=== PATIENT | male | born 1965 | race Caucasian/White ===

== ENCOUNTER → 2023-01-15 | Outpatient (CLI) | payer BC ==
--- NOTE | 2023-01-29 14:16 | P.SLEEP ---
History of Present Illness DATE: 01/15/2023 CONSULTATION/NEW PATIENT EVALUATION HISTORY OF PRESENT ILLNESS/SLEEP-WAKE EVALUATION: 57-year-old gentleman had been evaluated in the sleep center for obstructive sleep apnea hypopnea syndrome. Patient has history of obstructive sleep apnea for about 10 years. He is on treatment with CPAP. CPAP unit is old. I checked information from CPAP unit. Usage is 27 out of 30 nights for more than 4 hours, average 4.1 hours per night ,apnea-hypopnea index 2.9. Results of previous sleep studies possibly an available. SLEEP SCHEDULE: Usually sleep schedule from 9 PM to 3:30 AM on weekdays. On weekend sleep time is various, wake up time still the same 3:30 AM. FALLING ASLEEP: No problems with falling asleep. DURING SLEEP: Occasionally patient has dry mouth, usually does not wake up from sleep. Positive history of loud snoring. No history of hypnogogical hallucinations, sleep paralysis, or cataplexy. DURING THE DAY/WAKE STATE: No significant excessive daytime sleepiness. [place] sleepiness scale is 0. Patient doesn't take naps. PAST MEDICAL HISTORY: Hypertension. Low testosterone level. PAST SURGICAL HISTORY: Surgery for umbilical hernia. MEDICATIONS: Testosterone injections. FAMILY HISTORY: Cancer. REVIEW OF SYSTEMS: Snoring. No fevers. No double vision. No recent chest pain. No shortness of breath. No abdominal pain. No bleeding episodes. No blood in urine. No seizure episodes. PHYSICAL EXAMINATION: GENERAL: A pleasant patient without any distress. VITAL SIGNS: BP 182/97 , HR 91 , RR 16 , weight 267.4 pounds, height 5 foot 7.5 inches, body mass index 41.2 . HEENT: PERRLA, EOMI. Evaluation of oropharynx showed tongue protrudes midline, low position of soft palate Mallampati 4. NECK: Supple. No JVD. Thyroid is not palpable. 20-3/4 inches in circumference. LUNGS: Clear to percussion and to auscultation. Good air exchange. No wheezing or rhonchi. HEART: S1, S2 regular. No murmurs, gallops or rubs. ABDOMEN: Soft and nontender. Bowel sounds are present. No organomegaly appreciated. Obese EXTREMITIES: No clubbing or cyanosis. COLD WORK OPERATOR: Awake, alert, and oriented x3. Cranial nerves 2 to 7 intact. There is no fasciculation or atrophy noted. No focal deficits observed. ASSESSMENT: 1. Obstructive sleep apnea hypopnea syndrome for about 10 years. Patient continued to use his CPAP equipment with good compliance. Positive history of snoring. Extremely low position of soft palate Mallampati 4, wide neck 20 and three-quarter inches. Obstructive sleep apnea-hypopnea syndrome. 2. Obesity body mass index 41.2. 3. History of low testosterone level. 4. Significant hypertension in the office. PLAN: 1. Home sleep apnea testfor evaluation of patient's breathing during sleep at the present time. We don't have results of previous sleep studies. 2. Follow-up visit to discuss results of the test. 3. Preferable position during sleep on the side. 4. No driving if patient feels any sleepiness. Patient is aware of civil and criminal liability for unsafe driving. 5. Sleep hygiene with regular sleep time for at least 7.5-8 hours. 6. Watching and losing weight. 7. Prescription for all necessary CPAP supplies. 8. Monitoring blood pressure, low sodium diet. Thank you very much for referring this patient for consultation. Sincerely, Ortiz Lopez MD, PhD, FAASM. Diplomat of [place] [employer], Sleep Medicine Board by [place] [employer] [place] [employer] Technology Assistant of [facility] Past Medical History Past Medical History: Hypertension, Sleep Apnea/CPAP/BIPAP Additional Past Medical History / Comment(s): no medications for hypertension, just monitoring History of Any Multi-Drug Resistant Organisms: None Reported Past Surgical History: Heart Catheterization, Tonsillectomy Past Anesthesia/Blood Transfusion Reactions: No Reported Reaction Past Psychological History: No Psychological Hx Reported Smoking Status: Former smoker Past Alcohol Use History: Rare Past Drug Use History: None Reported - Past Family History Father Family Medical History: No Reported History Medications and Allergies Home Medications Medication Instructions Recorded Confirmed Type oxyCODONE HCL [OxyIR] 5 mg PO Q6H PRN 3 Days #6 tab 06/24/22 Rx Allergies Allergy/AdvReac Type Severity Reaction Status Date / Time No Known Allergies Allergy Verified 06/24/22 08:32 Sleep Note - Sleep Note Sleep Note: Temperature: Pulse Rate: Respiratory Rate: Blood Pressure: SpO2: Height: Weight: BMI: Neck Circumference:
== END ==
LOC: SLEEP 15:18
PROVIDERS: ATTEND Internal Medicine
DX: G47.33 Obstructive sleep apnea (adult) (pediatric) (principal); I10 Essential (primary) hypertension; Z99.89 Dependence on other enabling machines and devices; E66.9 Obesity, unspecified; Z68.41 Body mass index [BMI] 40.0-44.9, adult; R86.1 Abnormal level of hormones in specimens from male genital organs
CPT/HCPCS: 99211

== ENCOUNTER 2023-02-01 08:41 | Emergency (ER) | payer BC ==
[2023-02-01 09:00] VITALS: BP 161/90; PULSE 69; RESP 19; TEMP 97.9
--- NOTE | 2023-02-01 09:26 | ED ---
General Adult HPI - General Chief complaint: Extremity Problem,Nontraumatic Stated complaint: R/O Blood Clot in Leg Time Seen by Provider: 02/01/23 09:00 Source: patient, family, RN notes reviewed, old records reviewed Mode of arrival: ambulatory Limitations: no limitations - History of Present Illness Initial comments: This is a 57-year-old male who presents emergency Department complaining of some pain on the medial aspect of his mid right thigh. Patient was concerned for a blood clot. Patient states he was was recently in the hospital for TIA he was in twice and was told that he had some sort of arrhythmia so he has a monitor on at the present time. Patient has since seen his examination grader and yesterday saw his primary medical care doctor. Patient denies any difficulty breathing or chest pain currently patient denies any palpitations. Patient denies any recent fever chills per patient denies any other symptoms at this time. - Related Data Previous Rx's Medication Instructions Recorded oxyCODONE HCL [OxyIR] 5 mg PO Q6H PRN 3 Days #6 tab 06/24/22 Allergies Allergy/AdvReac Type Severity Reaction Status Date / Time No Known Allergies Allergy Verified 02/01/23 09:00 Review of Systems ROS Statement: Those systems with pertinent positive or pertinent negative responses have been documented in the HPI. ROS Other: All systems not noted in ROS Statement are negative. Past Medical History Past Medical History: Hypertension, Sleep Apnea/CPAP/BIPAP Additional Past Medical History / Comment(s): no medications for hypertension, just monitoring History of Any Multi-Drug Resistant Organisms: None Reported Past Surgical History: Heart Catheterization, Tonsillectomy Past Anesthesia/Blood Transfusion Reactions: No Reported Reaction Past Psychological History: No Psychological Hx Reported Smoking Status: Former smoker Past Alcohol Use History: Rare Past Drug Use History: None Reported - Past Family History Father Family Medical History: No Reported History General Exam - General Exam Comments Initial Comments: GENERAL: Patient is well-developed and well-nourished. Patient is nontoxic and well- hydrated and is in no acute distress. ENT: Neck is soft and supple. No significant lymphadenopathy is noted. Oropharynx is clear. Moist mucous membranes. Neck has full range of motion without eliciting any pain. EYES: The sclera were anicteric and conjunctiva were pink and moist. Extraocular movements were intact and pupils were equal round and reactive to light. Eyelids were unremarkable. PULMONARY: Unlabored respirations. Good breath sounds bilaterally. No audible rales rhonchi or wheezing was noted. CARDIOVASCULAR: There is a regular rate and rhythm without any murmurs gallops or rubs. SKIN: Skin is clear with no lesions or rashes and otherwise unremarkable. NEUROLOGIC: Patient is alert and oriented x3. Cranial nerves II through XII are grossly intact. Motor and sensory are also intact. Normal speech, volume and content. Symmetrical smile. MUSCULOSKELETAL: Normal extremities with adequate strength and full range of motion. Right anterior thigh has some mild tenderness to palpation there is no swelling no redness and no bruising LYMPHATICS: No significant lymphadenopathy is noted PSYCHIATRIC: Patient is mildly anxious Limitations: no limitations Course Vital Signs 02/01/23 08:55 Temperature 97.9 F Pulse Rate 69 Respiratory 19 Rate Blood Pressure 161/90 O2 Sat by Pulse 98 Oximetry Medical Decision Making - Medical Decision Making Was pt. sent in by a medical professional or institution (, PA, FLATWARE MAKER, urgent care, hospital, or shelter...) When possible be specific @ -No Did you speak to anyone other than the patient for history (EMS, parent, family, police, friend...)? What history was obtained from this source @ -No Did you review nursing and triage notes (agree or disagree)? Why? @ -I reviewed and agree with nursing and triage notes Were old charts reviewed (outside hosp., previous admission, EMS record, old EKG, old radiological studies, urgent care reports/EKG's, shelter records)? Report findings @ -No old charts were reviewed Differential Diagnosis (chest pain, altered mental status, abdominal pain women, abdominal pain men, vaginal bleeding, weakness, fever, dyspnea, syncope, headache, dizziness, GI bleed, back pain, seizure, CVA, palpatations, mental health, musculoskeletal)? @ -Differential Musculoskeletal Muscular strain, contusion, ligament sprain, fracture, arthritis, septic arthritis, bursitis, cellulitis, muscle spasm, nerve compression, DVT, arterial occlusion, herpes zoster, electrolyte abnormality, tumor.... This is not meant to be in all inclusive listl EKG interpreted by me (3pts min.). @ -As above X-rays interpreted by me (1pt min.). @ -None done CT interpreted by me (1pt min.). @ -None done U/S interpreted by me (1pt. min.). @ -Ultrasound was done of the right leg showed no DVT What testing was considered but not performed or refused? (CT, X-rays, U/S, labs)? Why? @ -None What meds were considered but not given or refused? Why? @ -None Did you discuss the management of the patient with other professionals (professionals i.e. DrAriel, PA, FLATWARE MAKER, lab, RT, psych nurse, social media community manager, physical ther, teacher, seismology technical officer, case management associate)? Give summary @ -No Was smoking cessation discussed for >3mins.? @ -No Was critical care preformed (if so, how long)? @ -No Were there social determinants of health that impacted care today? How? (Homelessness, low income, unemployed, alcoholism, drug addiction, transportation, low edu. Level, literacy, decrease access to med. care, usp, rehab)? @ -No Was there de-escalation of care discussed even if they declined (Discuss DNR or withdrawal of care, Hospice)? DNR status @ -No What co-morbidities impacted this encounter? (DM, HTN, Smoking, COPD, CAD, Cancer, CVA, ARF, Chemo, Hep., AIDS, mental health diagnosis, sleep apnea, morbid obesity)? @ -None Was patient admitted / discharged? Hospital course, mention meds given and route, prescriptions, significant lab abnormalities, going to OR and other pertinent info. @ -Patient had tenderness in the right medial thigh we ultrasound showed no DVT there was no bruising no redness or swelling. Undiagnosed new problem with uncertain prognosis? @ -No Drug Therapy requiring intensive monitoring for toxicity (Heparin, Nitro, Insulin, Cardizem)? @ -No Were any procedures done? @ -No Diagnosis/symptom? @ -Musculoskeletal pain Acute, or Chronic, or Acute on Chronic? @ -Acute Uncomplicated (without systemic symptoms) or Complicated (systemic symptoms)? @ -default Side effects of treatment? @ -No Exacerbation, Progression, or Severe Exacerbation? @ -No Poses a threat to life or bodily function? How? (Chest pain, [place], [place], pneumonia, PE, COPD, DKA, ARF, appy, cholecystitis, CVA, Diverticulitis, Homicidal, Suicidal, threat to staff... and all critical care pts) @ -No Disposition Clinical Impression: Acute thigh pain Disposition: HOME SELF-CARE Condition: Good Instructions (If sedation given, give patient instructions): Musculoskeletal Pain (ED) Is patient prescribed a controlled substance at d/c from ED?: No Referrals: Nba Steve DO [Primary Care Provider] - 1-2 days Time of Disposition: 10:10
--- NOTE | 2023-02-01 09:57 | US ---
EXAMINATION TYPE: US venous doppler duplex LE RT DATE OF EXAM: 02/01/2023 9:19 AM COMPARISON: NONE CLINICAL HISTORY: Leg pain. Pt states right leg/thigh pain SIDE PERFORMED: Right TECHNIQUE: The lower extremity deep venous system is examined utilizing real time linear array sonog urvashi with graded compression, doppler sonography and color-flow sonography. VESSELS IMAGED: Common Femoral Vein Deep Femoral Vein Greater Saphenous Vein * Femoral Vein Popliteal Vein Small Saphenous Vein * Proximal Calf Veins (* superficial vessels) Right Leg: Negative for DVT Grayscale, color doppler, spectral doppler imaging performed of the deep veins of the right lower ext remity. There is normal flow, compressibility, vascular waveforms. IMPRESSION: No ultrasound evidence for acute DVT in the right lower extremity.
== END 2023-02-01 10:16 | disposition home or self-care (01) ==
LOC: EC 08:41
DX: M79.651 Pain in right thigh (principal); I10 Essential (primary) hypertension; Z95.5 Presence of coronary angioplasty implant and graft; Z90.89 Acquired absence of other organs; Z87.891 Personal history of nicotine dependence
CPT/HCPCS: 99283

== ENCOUNTER 2023-02-05 16:41 | Observation (INO) | payer BC ==
[2023-02-05 16:50] VITALS: TEMP 98
--- NOTE | 2023-02-05 18:06 | ED ---
General Adult HPI - General Chief complaint: Chest Pain Stated complaint: recheck Time Seen by Provider: 02/05/23 17:51 Source: patient Mode of arrival: ambulatory Limitations: no limitations - History of Present Illness Initial comments: This patient is a 57-year-old man who presents evaluation of left-sided neck and jaw tightness. The patient states that this had come on earlier today while he was at rest. No exertional component. He states going back 5 weeks he has been having episodes of left sided chest/neck pain and he has been seen by cardiology (Dr. Meade, Jamal Verma) in number times. He has had a nuclear stress test, 2 echocardiograms, carotid ultrasound, and he has not have an answer for the symptoms. Last heart catheterization was 10 years ago. Patient states that when things came on today he took 4 baby aspirin and then proceeded to come to emergency department. No anginal type symptoms, denies dyspnea, diaphoresis, nausea or vomiting, palpitations or syncope. The patient does note that he yesterday changed his antihypertensive medication and was wondering if this that contributed. -: hour(s) Location: neck Radiation: non-radiation Quality: other (Tight) Consistency: constant Improves with: none Worsens with: none Treatments Prior to Arrival: none - Related Data Home Medications Medication Instructions Recorded Confirmed Aspirin [Adult Low Dose Aspirin EC] 81 mg PO DAILY 02/05/23 02/05/23 Atorvastatin [Lipitor] 40 mg PO HS 02/05/23 02/05/23 dilTIAZem HCL [Cartia Xt] 120 mg PO DAILY 02/05/23 02/05/23 Allergies Allergy/AdvReac Type Severity Reaction Status Date / Time No Known Allergies Allergy Verified 02/05/23 20:09 Review of Systems ROS Statement: Those systems with pertinent positive or pertinent negative responses have been documented in the HPI. ROS Other: All systems not noted in ROS Statement are negative. Constitutional: Denies: fever, chills Respiratory: Denies: cough, dyspnea Cardiovascular: Reports: as per HPI. Denies: chest pain, palpitations, dyspnea on exertion, orthopnea, edema, syncope Gastrointestinal: Denies: abdominal pain, nausea, vomiting Genitourinary: Denies: dysuria, hematuria Musculoskeletal: Denies: back pain Skin: Denies: rash Neurological: Denies: headache, weakness Past Medical History Past Medical History: Hypertension, Sleep Apnea/CPAP/BIPAP Additional Past Medical History / Comment(s): no medications for hypertension, just monitoring History of Any Multi-Drug Resistant Organisms: None Reported Past Surgical History: Heart Catheterization, Tonsillectomy Past Anesthesia/Blood Transfusion Reactions: No Reported Reaction Past Psychological History: No Psychological Hx Reported Smoking Status: Former smoker Past Alcohol Use History: Rare Past Drug Use History: None Reported - Past Family History Father Family Medical History: No Reported History General Exam General appearance: alert, in no apparent distress Head exam: Present: atraumatic, normocephalic Eye exam: Present: normal appearance. Absent: scleral icterus, conjunctival injection Neck exam: Present: normal inspection, full ROM. Absent: tenderness Respiratory exam: Present: normal lung sounds bilaterally. Absent: respiratory distress, wheezes, rales, rhonchi, stridor Cardiovascular Exam: Present: regular rate, normal rhythm, normal heart sounds. Absent: systolic murmur, diastolic murmur, rubs, gallop GI/Abdominal exam: Present: soft. Absent: distended, tenderness, guarding, rebound, rigid, mass Extremities exam: Present: normal inspection, normal capillary refill. Absent: pedal edema, calf tenderness Back exam: Present: normal inspection. Absent: CVA tenderness (R), CVA tenderness (L) Neurological exam: Present: alert Skin exam: Present: warm, dry, intact, normal color. Absent: rash Course Vital Signs 02/05/23 02/05/23 16:46 20:11 Temperature 98.0 F Pulse Rate 81 72 Respiratory 16 16 Rate Blood Pressure 158/84 154/91 O2 Sat by Pulse 98 Oximetry EKG Findings - EKG Results: EKG: interpreted by ERMD, sinus rhythm (Rate 69 bpm), normal axis - Blocks, [place], Hypertrophy, ST Abn: AV and intraventricular conduction: right bundle branch block (fixed/intermittent, complete/incomplete) (Incomplete) Chamber hypertrophy or enlargement: only voltage criteria for left ventricular hypertrophy Medical Decision Making - Medical Decision Making This patient is 57-year-old man with pain to the left jaw/left upper chest that is been having intermittently going back for some weeks now. His workup here is negative. Discussed having him follow with his lumber planer as his admission overnight, and the patient does continue to have some symptoms here. We'll admit for serial enzymes and monitoring. - Lab Data Result diagrams: 02/05/23 18:06 02/05/23 18:06 Lab Results 02/05/23 02/05/23 02/05/23 Range/Units 18:06 18:06 18:06 WBC 7.8 (3.8-10.6) k/uL RBC 4.93 (4.30-5.90) m/uL Hgb 15.3 (13.0-17.5) gm/dL Hct 43.4 (39.0-53.0) % MCV 88.1 (80.0-100.0) fL MCH 31.0 (25.0-35.0) pg MCHC 35.2 (31.0-37.0) g/dL RDW 11.9 (11.5-15.5) % Plt Count 210 (150-450) k/uL MPV 8.1 Neutrophils % 69 % Lymphocytes % 21 % Monocytes % 5 % Eosinophils % 3 % Basophils % 1 % Neutrophils # 5.3 (1.3-7.7) k/uL Lymphocytes # 1.6 (1.0-4.8) k/uL Monocytes # 0.4 (0-1.0) k/uL Eosinophils # 0.2 (0-0.7) k/uL Basophils # 0.1 (0-0.2) k/uL PT 11.3 (9.0-12.0) sec INR 1.1 (<1.2) APTT 27.0 (22.0-30.0) sec Sodium 137 (137-145) mmol/L Potassium 4.4 (3.5-5.1) mmol/L Chloride 105 (98-107) mmol/L Carbon Dioxide 23 (22-30) mmol/L Anion Gap 9 mmol/L BUN 17 (9-20) mg/dL Creatinine 0.97 (0.66-1.25) mg/dL Est GFR (CKD-EPI)AfAm >90 (>60 ml/min/1.73 sqM) Est GFR (CKD-EPI)NonAf 88 (>60 ml/min/1.73 sqM) Glucose 125 H (74-99) mg/dL Calcium 8.8 (8.4-10.2) mg/dL Magnesium 2.3 (1.6-2.3) mg/dL Total Bilirubin 0.7 (0.2-1.3) mg/dL AST 43 (17-59) U/L ALT 60 H (4-49) U/L Alkaline Phosphatase 52 (38-126) U/L Troponin I (0.000-0.034) ng/mL Total Protein 7.1 (6.3-8.2) g/dL Albumin 4.5 (3.5-5.0) g/dL 02/05/23 Range/Units 18:06 WBC (3.8-10.6) k/uL RBC (4.30-5.90) m/uL Hgb (13.0-17.5) gm/dL Hct (39.0-53.0) % MCV (80.0-100.0) fL MCH (25.0-35.0) pg MCHC (31.0-37.0) g/dL RDW (11.5-15.5) % Plt Count (150-450) k/uL MPV Neutrophils % % Lymphocytes % % Monocytes % % Eosinophils % % Basophils % % Neutrophils # (1.3-7.7) k/uL Lymphocytes # (1.0-4.8) k/uL Monocytes # (0-1.0) k/uL Eosinophils # (0-0.7) k/uL Basophils # (0-0.2) k/uL PT (9.0-12.0) sec INR (<1.2) APTT (22.0-30.0) sec Sodium (137-145) mmol/L Potassium (3.5-5.1) mmol/L Chloride (98-107) mmol/L Carbon Dioxide (22-30) mmol/L Anion Gap mmol/L BUN (9-20) mg/dL Creatinine (0.66-1.25) mg/dL Est GFR (CKD-EPI)AfAm (>60 ml/min/1.73 sqM) Est GFR (CKD-EPI)NonAf (>60 ml/min/1.73 sqM) Glucose (74-99) mg/dL Calcium (8.4-10.2) mg/dL Magnesium (1.6-2.3) mg/dL Total Bilirubin (0.2-1.3) mg/dL AST (17-59) U/L ALT (4-49) U/L Alkaline Phosphatase (38-126) U/L Troponin I <0.012 (0.000-0.034) ng/mL Total Protein (6.3-8.2) g/dL Albumin (3.5-5.0) g/dL Disposition Clinical Impression: Jaw pain Disposition: Left Against Medical Advice Condition: Good Is patient prescribed a controlled substance at d/c from ED?: No
[2023-02-05 18:17] LABS: Basophils # (A) 0.1 k/uL (0-0.2); Basophils % (A) 1 %; Eosinophils # (A) 0.2 k/uL (0-0.7); Eosinophils % (A) 3 %; HCT 43.4 % (39.0-53.0); HGB 15.3 gm/dL (13.0-17.5); Lymphocytes # (A) 1.6 k/uL (1.0-4.8); Lymphocytes % (A) 21 %; MCHC 35.2 g/dL (31.0-37.0); MCV 88.1 fL (80.0-100.0); Mean Platelet Volume 8.1; Monocytes # (A) 0.4 k/uL (0-1.0); Monocytes % (A) 5 %; Neutrophils # (A) 5.3 k/uL (1.3-7.7); Neutrophils % (A) 69 %; Platelet Count 210 k/uL (150-450); RBC 4.93 m/uL (4.30-5.90); RDW 11.9 % (11.5-15.5); WBC 7.8 k/uL (3.8-10.6)
[2023-02-05 18:29] LABS: ALT 60 U/L (4-49); African American GFR (CKD) >90 (>60 ml/min/1.73 sqM); Albumin 4.5 g/dL (3.5-5.0); Anion Gap 9 mmol/L; Blood Urea Nitrogen 17 mg/dL (9-20); Calcium 8.8 mg/dL (8.4-10.2); Carbon Dioxide 23 mmol/L (22-30); Chloride 105 mmol/L (98-107); Glucose 125 mg/dL (74-99); Non-African American GFR(CKD) 88 (>60 ml/min/1.73 sqM); Sodium 137 mmol/L (137-145); Total Bilirubin 0.7 mg/dL (0.2-1.3); Total Protein 7.1 g/dL (6.3-8.2)
--- NOTE | 2023-02-05 18:29 | XR ---
EXAMINATION TYPE: XR chest 2V DATE OF EXAM: 02/05/2023 6:20 PM COMPARISON: None TECHNIQUE: XR chest 2V Frontal and lateral views of the chest. CLINICAL INDICATION:Male, 57 years old with history of Chest Pain; FINDINGS: Lungs/Pleura: There is no evidence of pleural effusion, focal consolidation, or pneumothorax. Pulmonary vascularity: Unremarkable. Heart/mediastinum: Cardiomediastinal silhouette is unremarkable. Musculoskeletal: No acute osseous pathology. IMPRESSION: No acute cardiopulmonary disease/process.
[2023-02-05 18:30] LABS: AST 43 U/L (17-59); Alkaline Phosphatase 52 U/L (38-126); Potassium 4.4 mmol/L (3.5-5.1)
[2023-02-05 18:31] LABS: Magnesium 2.3 mg/dL (1.6-2.3)
[2023-02-05 18:43] LABS: INR 1.1 (<1.2); Prothrombin Time 11.3 sec (9.0-12.0)
[2023-02-05] MEDS ORDERED: NITROGLYCERIN SL TABS 0.4 MG TAB SUBLINGUAL PRN (20:06)
[2023-02-06] MEDS ORDERED: ALPRAZolam 0.5 MG TAB PO PRN (01:36)
[2023-02-06] MEDS ORDERED: SODIUM CHLORIDE 0.9% 1,000 ML IV SCH (03:15)
--- NOTE | 2023-02-06 03:15 | P.HPIM ---
History of Present Illness H&P Date: 02/05/23 Chief Complaint: jaw and neck pain 57 year old male with obesity ,PRIYA, hypertension patient coming in today due to sudden onset left sided jaw heaviness tightness radiating to the left neck. he was concerned this could be a stroke , happened suddenly while resting , he took 4 ASA pills and came in for evaluation patient works in [employer] and receives his care at [facility]. 5 weeks ago he experienced left UE numbness and weakness, along with left sided facial numbness and tingling, he went to the hospital concerned regarding a stroke , he received a battery of workup which was all negative and released. since then , he went to his porter head multiple times, with concerns regarding his heart and and brain (rule out heart attacks and stroke) patient seems to be anxious and questioning the symptoms he is having trying to find an answer why he is having episodes of palpitations, left sided face and UE numbess episodes. patient had nuclear stress test done, echocardiogram , carotid US , and stroke workup done , all reporting no acute abnormalities , he is currently wearing a brim presser and was recently told that his heart did some non significant arrhythmia. he recalls after seeing his regular doc earlier this year, he received couple doses of testosterone shots , after which he felt great until the event mentioned above. he deneies DM , tobacco smoking, illicit drugs , he admits to social alcohol currently he is asymptomatic and feels completely back to normal he continues to ask throughout the interview , if he is going to have a stroke, heart attack or arrhythmia no recent travel , no history of clots, no chest pain , no trouble breathing, no fever, chills, no URI symptoms no changes in urinary or bowel habits Review of Systems Pertinent positives as noted in HPI. All other systems were reviewed and are negative Past Medical History Past Medical History: Hypertension, Sleep Apnea/CPAP/BIPAP Additional Past Medical History / Comment(s): no medications for hypertension, just monitoring History of Any Multi-Drug Resistant Organisms: None Reported Past Surgical History: Heart Catheterization, Tonsillectomy Past Anesthesia/Blood Transfusion Reactions: No Reported Reaction Past Psychological History: No Psychological Hx Reported Smoking Status: Former smoker Past Alcohol Use History: Rare Past Drug Use History: None Reported - Past Family History Father Family Medical History: No Reported History Medications and Allergies Home Medications Medication Instructions Recorded Confirmed Type Aspirin [Adult Low Dose Aspirin EC] 81 mg PO DAILY 02/05/23 02/05/23 History Atorvastatin [Lipitor] 40 mg PO HS 02/05/23 02/05/23 History dilTIAZem HCL [Cartia Xt] 120 mg PO DAILY 02/05/23 02/05/23 History Allergies Allergy/AdvReac Type Severity Reaction Status Date / Time No Known Allergies Allergy Verified 02/05/23 20:09 Physical Exam Vitals: Vital Signs Temp Pulse Resp BP Pulse Ox 02/06/23 01:01 58 L 18 02/06/23 00:01 61 18 150/83 97 02/05/23 23:22 63 18 143/73 98 02/05/23 22:55 70 18 130/62 98 02/05/23 21:53 62 20 136/74 96 02/05/23 20:11 72 16 154/91 02/05/23 16:46 98.0 F 81 16 158/84 98 Intake and Output 02/05/23 02/05/23 02/06/23 14:59 22:59 06:59 Other: Weight 111.13 kg Constitutional: No acute distress, conversant, pleasant Eyes: Anicteric sclerae, moist conjunctiva, Pupils equal round reactive to light ENMT: NC/AT Oropharynx clear, no erythema, or exudates Neck: Supple, no masses, or JVD No carotid bruits No thyromegaly Lungs: Clear to auscultation Clear to percussion Normal respiratory effort, no accessory muscle use Cardiovascular: Heart regular in rate and rhythm, No murmurs, gallops, or rubs No peripheral edema Abdominal: Soft Nontender, no guarding, rebound or rigidity Abdomen moving with respiration Normoactive bowel sounds No hepatomegaly, No splenomegaly No palpable mass No abdominal wall hernia noted Skin: Normal temperature, tone, texture, turgor No induration No subcutaneous nodules No rash, lesions No ulcers Extremities: No digital cyanosis No clubbing Pedal pulses intact and symmetrical Radial pulses intact and symmetrical No calf tenderness Psychiatric: Alert and oriented to person, place and time Appropriate affect fair judgement Neuro Muscles Strength 5/5 in all 4 extremities Sensation to light touch grossly present throughout Cranial nerves II-XII grossly intact Lymphatics: no palpable cervical or supraclavicular lymph nodes Results CBC & Chem 7: 02/05/23 18:06 02/05/23 18:06 Labs: Abnormal Lab Results - Last 24 Hours (Table) 02/05/23 Range/Units 18:06 Glucose 125 H (74-99) mg/dL ALT 60 H (4-49) U/L Assessment and Plan Assessment: 57 year old male with PRIYA, obesity , hypertension not on treatment , presenting with left sided jaw pain radiating to the neck , I discussed the case with ED doc, patient reporting palpitations and concerns regarding heart attack, arrhythmia and stroke, I accepted the admission for close monitoring and cardiac workup with anticipated length of stay < 2 midnights hypertension , untreated start low dose amlodipine 5 mg po daily close monitoring of vital signs palpitations EKG normal sinus rhythm review cardiac loop event monitor brim presser monitor vital signs continue cardizem 120 mg daily continue aspirin and statin PRIYA encourage to use CPAP blood work reviewed Hgb 15.3 WBC 7.8 plt 210 unremarkable BUN 17, cr 0.97, Na 137 , K 4.4 unremarkable continue to monitor renal function and urine output obtain records regarding brain CT, carotid US , echocardiogram and stress test and nuclear test obtain record regarding cardiac loop event monitor consider OP follow up with sleep center to titrate your CPAP , currently on auto setting xanax PRN for anxiety DVT PPX heparin sc tid full code
[2023-02-06] MEDS ORDERED: HEPARIN SODIUM,PORCINE/PF 5,000 UNIT/0.5 ML SYRINGE SQ SCH (08:00)
[2023-02-06] MEDS ORDERED: ASPIRIN 325 MG TAB PO SCH (09:00)
[2023-02-06] MEDS ORDERED: ASPIRIN 81 MG PO SCH (09:00)
[2023-02-06] MEDS ORDERED: DILTIAZEM CD 120 MG CAP.ER.24H PO SCH (09:00)
[2023-02-06 09:05] VITALS: BP 150/88; PULSE 70; RESP 18
[2023-02-06 09:41] LABS: Chol/HDL Ratio 2.72 Ratio; LDL Cholesterol,Calculated 38.4 mg/dL (0.0-131.0)
--- NOTE | 2023-02-06 10:11 | P.DS ---
Providers Date of admission: 02/05/23 20:08 Expected date of discharge: 02/06/23 Attending physician: Ugo Wright MD Consults: 02/05/23 20:06 Consult Physician Routine Consulting Provider: Javier Garcia Consult Reason/Comments: chest/jaw pain Do you want consulting provider notified?: Yes Primary care physician: [facility] Course: Discharge Diagnosis: Jaw pain/neck pain, resolved after administration of Xanax. Stress and anxiety, patient reports increased social stressors with work. Patient was discharged home on Vistaril 25 mg 4 times daily as needed for anxiety along with information regarding techniques on management of stress. Hypertension Hyperlipidemia Sleep apnea Hospital Course: patient is a very pleasant 57-year-old male with a past medical history of hypertension, hyperlipidemia, and sleep apnea. Patient reports that he has recently underwent a cardiac stress testing, and carotid ultrasounds which was reported to be normal findings and that he currently is wearing an event monitor and being monitored by his city supervisor out of [place] secondary to concerns of possible previous TIA. Patient reports that he has been under significant stress at work and was on the phone with his job when he began feeling this sudden onset left-sided jaw pain and tightness radiating into his neck. Patient underwent full evaluation in the emergency department. CBC, coags, and CMP were unremarkable. Troponin negative at less than 0.012.EKG showed normal sinus rhythm at 69 bpm with no noted T-wave or ST abnormalities upon personal review and interpretation. Chest x-ray reviewed and lungs appear clear with no signs of acute cardiopulmonary process. Patient was admitted under our services with consultation to cardiology. Repeat troponin was completed also negative at less than 0.012. Patient evaluated by cardiology and cleared from a cardiac perspective for discharge. patient reports total resolution of jaw pain and tightness after receiving a single dose of Xanax 0.5 mg. patient is medically stable at this time. patient is medically stable for discharge at this time. Patient to follow up outpatient with his PCP and his city supervisor as directed. Patient was prescribed hydroxyzine 25 mg every 6 hours as needed for anxiety. Discussed different coping mechanisms with patient and patient provided with information regarding managing of stress and anxiety. Patient seen and examined at bedside. Vital signs reviewed and stable. General: Nontoxic, no distress and appears stated age. Derm: Skin warm and dry, normal coloration for ethnicity. Head: Atraumatic, normocephalic and symmetric. Eyes: EOMs intact, no lid lag, and anicteric sclera Mouth: no lip lesions, mucus membranes moist Cardiovascular: regular rate and rhythm with normal S1S2, no murmur, positive posterior tibial pulses bilaterally, and cap refill < 2 seconds. Lungs: Respirations even, regular, and unlabored on room air. Lungs CTA bilaterally, no rhonchi, no rales, no wheezing, and no accessory muscle usage. Abdominal: soft, nontender to palpation, no guarding, no appreciable organomegaly Ext: ROM intact. No gross muscle atrophy, no edema, no contractures Neuro: Speech clear, face symmetrical and CN II-XII grossly intact with no noted focal neuro deficits Psych: Alert and oriented to person, place, time, and situation. Appropriate and pleasant affect. A total of 31 minutes of time were spent preparing this complex discharge summary. Pt was discharged on 02/06/23 at 10:10 AM. Patient was seen independently by Nurse Practitioner. This document was prepared using [employer] dictation software. Please allow for errors in welder apprentice combination while rare they do occur. I reviewed the documentation as provided by the LUCHO above, who is the original author of this note. I agree with the documented assessment and plan, with the following changes: none Patient Condition at Discharge: Good Plan - Discharge Summary New Discharge Prescriptions: New hydrOXYzine pamoate [Vistaril] 25 mg PO QID PRN #90 cap PRN Reason: Anxiety Continue dilTIAZem HCL [Cartia Xt] 120 mg PO DAILY Atorvastatin [Lipitor] 40 mg PO HS Aspirin [Adult Low Dose Aspirin EC] 81 mg PO DAILY Discharge Medication List Aspirin [Adult Low Dose Aspirin EC] 81 mg PO DAILY 02/05/23 [History] Atorvastatin [Lipitor] 40 mg PO HS 02/05/23 [History] dilTIAZem HCL [Cartia Xt] 120 mg PO DAILY 02/05/23 [History] hydrOXYzine pamoate [Vistaril] 25 mg PO QID PRN #90 cap 02/06/23 [Rx] Follow up Appointment(s)/Referral(s): Nba Steve DO [Primary Care Provider] - 1-2 days Patient Instructions/Handouts: Chest Pain (DC), Stress (DC), Anxiety (GEN) Activity/Diet/Wound Care/Special Instructions: Activity: As tolerated. Take breaks as needed. Diet: Heart healthy and carb consistent diet. Avoid salts, or foods with hidden salts such as canned or boxed foods and frozen dinners. Extra salt makes your heart work harder and traps the fluid in your body for longer. Special Instructions: Take all of your medications as directed and remember to keep all of your doctor's appointments and follow-up as needed. As we discussed, it is important for you to follow-up with your city supervisor at [place]. Thank you for allowing us to participate in your care, it was truly a pleasure having you for our patient!!! Discharge Disposition: HOME SELF-CARE
[2023-02-06] MEDS ORDERED: ATORVASTATIN 40 MG TAB PO SCH (21:00)
--- NOTE | 2023-02-06 22:25 | CONS ---
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 He has most of his health care in [facility]. About 2 days ago, he had a stress test, walked for 12 minutes, but the final results are not available. He had no angina at that level of exercise. He comes in with a left-sided cheek and jaw discomfort. This has resolved. When he moves his jaw, pain seems to get worse. There is a significant amount of anxiety. He has had multiple stress tests, echocardiogram, carotid ultrasound, 8 years ago had a cardiac cath, all of these studies were unremarkable. His quality of pain is atypical. His troponins are normal. He is resting comfortably. He has been prescribed some Xanax. He is looking forward to taking some antianxiety medications. He has no chest pain at the time of my evaluation. He is resting comfortably at the time of my evaluation. However, he seems to be a bit anxious. PHYSICAL EXAMINATION: VITAL SIGNS: Blood pressure is 128/70, pulse rate is 56 per minute. HEENT: Unremarkable. Fundus was not examined by me. NECK: Supple. No JVD. I do not hear a carotid bruit. There is no thyromegaly. HEART: Reveals S1, S2 heard normally. No rub, murmur or gallop. LUNGS: Clear. ABDOMEN: Soft, nontender. EXTREMITIES: Lower extremities reveal normal pulses. No edema. CENTRAL NERVOUS SYSTEM: Normal. IMAGING STUDIES: EKG revealed sinus mechanism, minor right ventricular conduction delay, no acute changes. LABORATORY DATA: Revealed unremarkable troponins. IMPRESSION: 1. Atypical chest pain with a recent negative stress test within the last 1 week. 2. Anxiety. 3. Borderline hypertension. 4. He has some history of cardiac arrhythmia, for which he was placed on diltiazem. 5. Hyperlipidemia. RECOMMENDATIONS: From a cardiac standpoint, no further intervention necessary. The patient is receiving some Xanax. He can be discharged from cardiac standpoint and he should follow up with his liquid loader in the [facility] area. He will follow up with his liquid loader. MMODL / IJN: [id number] /
== END 2023-02-06 11:18 | disposition home or self-care (01) ==
LOC: EC 16:41 → 6NMEDSUR 20:08 → UNDODISOB 20:37 → 6NMEDSUR 02-06 07:21
PROVIDERS: ADMIT Internal Medicine; ATTEND Internal Medicine
DX: R68.84 Jaw pain (principal); R07.89 Other chest pain; R00.2 Palpitations; R20.0 Anesthesia of skin; F43.9 Reaction to severe stress, unspecified; F41.9 Anxiety disorder, unspecified; E78.5 Hyperlipidemia, unspecified; I49.9 Cardiac arrhythmia, unspecified; G47.33 Obstructive sleep apnea (adult) (pediatric); I10 Essential (primary) hypertension; I45.10 Unspecified right bundle-branch block; M54.2 Cervicalgia; E66.9 Obesity, unspecified; Z68.37 Body mass index [BMI] 37.0-37.9, adult; Z79.82 Long term (current) use of aspirin; Z79.899 Other long term (current) drug therapy; Z98.890 Other specified postprocedural states; Z87.891 Personal history of nicotine dependence; Z95.818 Presence of other cardiac implants and grafts
CPT/HCPCS: 96360; 96361; 99285; 36415; 93005 ×2; 80061; 80053; 84443; 83735; 84484 ×2; 85025; 85610; 85730; 83036; 71046; G0378 ×2

== ENCOUNTER 2023-02-14 03:36 | Emergency (ER) | payer BC ==
--- NOTE | 2023-02-14 04:46 | ED ---
General Adult HPI - General Source: patient Mode of arrival: ambulatory Limitations: no limitations <Cory Hernández - Last Filed: 02/14/23 05:45> <Bharat Basurto - Last Filed: 02/14/23 08:34> - General Chief complaint: Abdominal Pain Stated complaint: Abd Pain Time Seen by Provider: 02/14/23 03:49 - History of Present Illness Initial comments: This is a 57-year-old male with a past medical history including hyperlipidemia and hypertension presented to the emergency department for left lower quadrant abdominal pain. The patient stated that this began yesterday and was intermittent. The patient then stated that he was awoken today with the pain and therefore came to the emergency Department because "I shouldn't be woken up by pain." The patient did state that he had some minor radiation to his groin with some minor dysuria. The patient denied any similar symptoms in the past. The patient denied nausea, vomiting as well as any fevers and chills. The patient did report that his last bowel movement was 2 days ago which was unusual for him. (Cory Hernández) - Related Data Home Medications Medication Instructions Recorded Confirmed Aspirin [Adult Low Dose Aspirin EC] 81 mg PO DAILY 02/05/23 02/05/23 Atorvastatin [Lipitor] 40 mg PO HS 02/05/23 02/05/23 dilTIAZem HCL [Cartia Xt] 120 mg PO DAILY 02/05/23 02/05/23 Previous Rx's Medication Instructions Recorded hydrOXYzine pamoate [Vistaril] 25 mg PO QID PRN #90 cap 02/06/23 Amoxic-Pot Clav 875-125Mg 1 tab PO BID 10 Days #20 tab 02/14/23 [Augmentin 875-125] Allergies Allergy/AdvReac Type Severity Reaction Status Date / Time No Known Allergies Allergy Verified 02/14/23 03:40 Review of Systems ROS Other: All systems not noted in ROS Statement are negative. <Cory Hernández - Last Filed: 02/14/23 05:45> ROS Other: All systems not noted in ROS Statement are negative. <Bharat Basurto - Last Filed: 02/14/23 08:34> ROS Statement: Those systems with pertinent positive or pertinent negative responses have been documented in the HPI. Past Medical History Past Medical History: Hypertension, Sleep Apnea/CPAP/BIPAP Additional Past Medical History / Comment(s): no medications for hypertension, just monitoring History of Any Multi-Drug Resistant Organisms: None Reported Past Surgical History: Heart Catheterization, Tonsillectomy Past Anesthesia/Blood Transfusion Reactions: No Reported Reaction Past Psychological History: No Psychological Hx Reported Smoking Status: Former smoker Past Alcohol Use History: Rare Past Drug Use History: None Reported - Past Family History Father Family Medical History: No Reported History <Cory Hernández - Last Filed: 02/14/23 05:45> General Exam Limitations: no limitations General appearance: alert, in no apparent distress, obese Head exam: Present: atraumatic, normocephalic, normal inspection Eye exam: Present: normal appearance, PERRL Pupils: Present: normal accommodation ENT exam: Present: normal exam, normal oropharynx, mucous membranes moist Neck exam: Present: normal inspection, full ROM Respiratory exam: Present: normal lung sounds bilaterally Cardiovascular Exam: Present: regular rate, normal rhythm, normal heart sounds GI/Abdominal exam: Present: soft, tenderness (Minor tenderness noted to the left lower quadrant), normal bowel sounds Extremities exam: Present: normal inspection, full ROM Back exam: Present: normal inspection, full ROM Neurological exam: Present: alert, oriented X3, CN II-XII intact Psychiatric exam: Present: normal affect, normal mood Skin exam: Present: warm, dry <Cory Hernández - Last Filed: 02/14/23 05:45> Course Vital Signs 02/14/23 02/14/23 02/14/23 03:40 04:40 07:29 Temperature 97.9 F Pulse Rate 71 80 77 Respiratory 18 20 18 Rate Blood Pressure 184/93 149/89 148/82 O2 Sat by Pulse 98 95 98 Oximetry Medical Decision Making - Lab Data Result diagrams: 02/14/23 04:31 <Cory Hernández - Last Filed: 02/14/23 05:45> - Lab Data Result diagrams: 02/14/23 04:31 02/14/23 04:31 <Bharat Basurto - Last Filed: 02/14/23 08:34> - Medical Decision Making Was pt. sent in by a medical professional or institution (, PA, PLUSH FINISHER, urgent care, hospital, or halfway...) When possible be specific @ -No Did you speak to anyone other than the patient for history (EMS, parent, family, police, friend...)? What history was obtained from this source @ -No Did you review nursing and triage notes (agree or disagree)? Why? @ -I reviewed and agree with nursing and triage notes Were old charts reviewed (outside hosp., previous admission, EMS record, old EKG, old radiological studies, urgent care reports/EKG's, halfway records)? Report findings @ -No old charts were reviewed Differential Diagnosis (chest pain, altered mental status, abdominal pain women, abdominal pain men, vaginal bleeding, weakness, fever, dyspnea, syncope, headache, dizziness, GI bleed, back pain, seizure, CVA, palpatations, mental health)? @ -Kidney stone, diverticulitis, musculoskeletal strain EKG interpreted by me (3pts min.). @ -None X-rays interpreted by me (1pt min.). @ -None done CT interpreted by me (1pt min.). @ -CT abdomen and pelvis with IV contrast was obtained however was pending at this time. U/S interpreted by me (1pt. min.). @ -None done What testing was considered but not performed or refused? (CT, X-rays, U/S, labs)? Why? @ -None What meds were considered but not given or refused? Why? @ -None Did you discuss the management of the patient with other professionals (professionals i.e. , PA, PLUSH FINISHER, lab, RT, psych nurse, administrator social welfare, donation specialist, teacher, senior major gifts officer, continuous pillowcase cutter)? Give summary @ -No Was smoking cessation discussed for >3mins.? @ -No Was critical care preformed (if so, how long)? @ -No Were there social determinants of health that impacted care today? How? (Homelessness, low income, unemployed, alcoholism, drug addiction, transportation, low edu. Level, literacy, decrease access to med. care, half-way, rehab)? @ -No Was there de-escalation of care discussed even if they declined (Discuss DNR or withdrawal of care, Hospice)? DNR status @ -No What co-morbidities impacted this encounter? (DM, HTN, Smoking, COPD, CAD, Cancer, CVA, ARF, Chemo, Hep., AIDS, mental health diagnosis, sleep apnea, morbid obesity)? @ -Hypertension, hyperlipidemia Was patient admitted / discharged? Hospital course, mention meds given and route, prescriptions, significant lab abnormalities, going to OR and other pertinent info. @ -The patient was seen and evaluated in the emergency department. Physical exam, the patient was resting in bed without any acute distress. Vital signs admission were stable. Due to the nature the patient's complaints, initially, laboratory workup was obtained including a urinalysis. Urine did not show any significant blood indicating that a kidney stone is unlikely at this time. Laboratory workup was largely within normal limits. Due to the patient's continued left lower quadrant tenderness without blood noted in the urine, a CT abdomen and pelvis with IV contrast was obtained. The patient will be signed out pending completion of this imaging and reevaluation. The patient was signed out to Dr. Basurto in stable condition at 0700. Undiagnosed new problem with uncertain prognosis? @ -No Drug Therapy requiring intensive monitoring for toxicity (Heparin, Nitro, Insulin, Cardizem)? @ -No Were any procedures done? @ -No Diagnosis/symptom? @ -Left lower quadrant abdominal pain Acute, or Chronic, or Acute on Chronic? @ -Acute Uncomplicated (without systemic symptoms) or Complicated (systemic symptoms)? @ -default Side effects of treatment? @ -No Exacerbation, Progression, or Severe Exacerbation? @ -No Poses a threat to life or bodily function? How? (Chest pain, USA, ME, pneumonia, PE, COPD, DKA, ARF, appy, cholecystitis, CVA, Diverticulitis, Homicidal, Suicidal, threat to staff... and all critical care pts) @ -No (Cory Hernández) Was patient admitted / discharged? Hospital course, mention meds given and route, prescriptions, significant lab abnormalities, going to OR and other pert inent info. @ -Patient had a computed tomography scan that was interpreted by myself. Computed tomography scan showed diverticulitis with no abscess formation. Patient was feeling comfortable enough to be discharged home with antibiotics. Undiagnosed new problem with uncertain prognosis? @ -No Drug Therapy requiring intensive monitoring for toxicity (Heparin, Nitro, Insulin, Cardizem)? @ -No Were any procedures done? @ -No Diagnosis/symptom? @ -Diverticulitis Acute, or Chronic, or Acute on Chronic? @ -Acute Uncomplicated (without systemic symptoms) or Complicated (systemic symptoms)? @ -Complicated Side effects of treatment? @ -No Exacerbation, Progression, or Severe Exacerbation? @ -No Poses a threat to life or bodily function? How? (Chest pain, USA, ME, pneumonia, PE, COPD, DKA, ARF, appy, cholecystitis, CVA, Diverticulitis, Homicidal, Suicid al, threat to staff... and all critical care pts) @ -No (Bharat Basurto) - Lab Data Lab Results 02/14/23 02/14/23 02/14/23 Range/Units 04:31 04:31 04:31 WBC 9.5 (3.8-10.6) k/uL RBC 4.72 (4.30-5.90) m/uL Hgb 14.6 (13.0-17.5) gm/dL Hct 42.2 (39.0-53.0) % MCV 89.3 (80.0-100.0) fL MCH 30.8 (25.0-35.0) pg MCHC 34.5 (31.0-37.0) g/dL RDW 12.0 (11.5-15.5) % Plt Count 167 (150-450) k/uL MPV 8.5 Neutrophils % 78 % Lymphocytes % 12 % Monocytes % 5 % Eosinophils % 3 % Basophils % 0 % Neutrophils # 7.5 (1.3-7.7) k/uL Lymphocytes # 1.1 (1.0-4.8) k/uL Monocytes # 0.5 (0-1.0) k/uL Eosinophils # 0.3 (0-0.7) k/uL Basophils # 0.0 (0-0.2) k/uL Sodium 137 (137-145) mmol/L Potassium 4.2 (3.5-5.1) mmol/L Chloride 104 (98-107) mmol/L Carbon Dioxide 24 (22-30) mmol/L Anion Gap 9 mmol/L BUN 13 (9-20) mg/dL Creatinine 0.92 (0.66-1.25) mg/dL Est GFR (CKD-EPI)AfAm >90 (>60 ml/min/1.73 sqM) Est GFR (CKD-EPI)NonAf >90 (>60 ml/min/1.73 sqM) Glucose 123 H (74-99) mg/dL Calcium 8.8 (8.4-10.2) mg/dL Magnesium 2.2 (1.6-2.3) mg/dL Total Bilirubin 0.8 (0.2-1.3) mg/dL AST 32 (17-59) U/L ALT 55 H (4-49) U/L Alkaline Phosphatase 82 (38-126) U/L Total Protein 6.9 (6.3-8.2) g/dL Albumin 4.5 (3.5-5.0) g/dL Lipase 61 (23-300) U/L Urine Color Yellow Urine Appearance Clear (Clear) Urine pH 5.5 (5.0-8.0) Ur Specific [place] 1.014 (1.001-1.035) Urine Protein Negative (Negative) Urine Glucose (UA) Negative (Negative) Urine Ketones Trace H (Negative) Urine Blood Trace H (Negative) Urine Nitrite Negative (Negative) Urine Bilirubin Negative (Negative) Urine Urobilinogen <2.0 (<2.0) mg/dL Ur Leukocyte Esterase Negative (Negative) Urine RBC <1 (0-5) /hpf Ur Squamous Epith Cells <1 (0-4) /hpf Urine Mucus Rare H (None) /hpf Disposition <Cory Hernández - Last Filed: 02/14/23 05:45> Is patient prescribed a controlled substance at d/c from ED?: No Time of Disposition: 08:34 <Bharat Basurto - Last Filed: 02/14/23 08:34> Clinical Impression: Diverticulitis Disposition: HOME SELF-CARE Condition: Good Instructions (If sedation given, give patient instructions): Diverticulitis (ED) Prescriptions: Amoxic-Pot Clav 875-125Mg [Augmentin 875-125] 1 tab PO BID 10 Days #20 tab Referrals: Nba Steve DO [Primary Care Provider] - 1-2 days
[2023-02-14 05:27] LABS: Appearance,Urine Clear (Clear); Bilirubin,Urine Negative (Negative); Blood,Urine Trace (Negative); Color,Urine Yellow; Glucose,Urine (UA) Negative (Negative); Ketones,Urine Trace (Negative); Leukocyte Esterase,Urine Negative (Negative); Mucus,Urine Rare /hpf; Nitrite,Urine Negative (Negative); PH, Urine 5.5 (5.0-8.0); Protein,Urine Negative (Negative); RBC,Urine <1 /hpf (0-5); Specific Gravity,Urine 1.014 (1.001-1.035); Squamous Epithelial Cell,Urine <1 /hpf (0-4); Urobilinogen,Urine <2.0 mg/dL (<2.0)
[2023-02-14 05:30] LABS: Basophils % (A) 0 %; Eosinophils # (A) 0.3 k/uL (0-0.7); Eosinophils % (A) 3 %; HCT 42.2 % (39.0-53.0); HGB 14.6 gm/dL (13.0-17.5); Lymphocytes # (A) 1.1 k/uL (1.0-4.8); Lymphocytes % (A) 12 %; MCH 30.8 pg (25.0-35.0); MCHC 34.5 g/dL (31.0-37.0); MCV 89.3 fL (80.0-100.0); Mean Platelet Volume 8.5; Monocytes # (A) 0.5 k/uL (0-1.0); Monocytes % (A) 5 %; Neutrophils # (A) 7.5 k/uL (1.3-7.7); Neutrophils % (A) 78 %; Platelet Count 167 k/uL (150-450); RBC 4.72 m/uL (4.30-5.90); WBC 9.5 k/uL (3.8-10.6)
[2023-02-14 05:45] LABS: ALT 55 U/L (4-49); AST 32 U/L (17-59); African American GFR (CKD) >90 (>60 ml/min/1.73 sqM); Albumin 4.5 g/dL (3.5-5.0); Alkaline Phosphatase 82 U/L (38-126); Anion Gap 9 mmol/L; Blood Urea Nitrogen 13 mg/dL (9-20); Calcium 8.8 mg/dL (8.4-10.2); Carbon Dioxide 24 mmol/L (22-30); Chloride 104 mmol/L (98-107); Glucose 123 mg/dL (74-99); Lipase 61 U/L (23-300); Magnesium 2.2 mg/dL (1.6-2.3); Non-African American GFR(CKD) >90 (>60 ml/min/1.73 sqM); Potassium 4.2 mmol/L (3.5-5.1); Sodium 137 mmol/L (137-145); Total Bilirubin 0.8 mg/dL (0.2-1.3); Total Protein 6.9 g/dL (6.3-8.2)
--- NOTE | 2023-02-14 07:21 | CT ---
EXAMINATION TYPE: CT abdomen pelvis w con CT DLP: 1545.2 mGycm, Automated exposure control for dose reduction was used. DATE OF EXAM: 02/14/2023 6:49 AM COMPARISON: None CLINICAL INDICATION:Male, 57 years old with history of LLQ abdominal pain; LLQ pain TECHNIQUE: Axial CT of the abdomen and pelvis. Sagittal and coronal reformats were created on a [employer] workstation. Contrast used:100 mL of Isovue 300 with IV Contrast, Oral contrast used: without Oral Contrast FINDINGS: LOWER CHEST: Unremarkable ABDOMEN LIVER: Diffusely hypoattenuating parenchyma. GALLBLADDER AND BILE DUCTS: Unremarkable. PANCREAS: Unremarkable. SPLEEN: Punctate calcified granuloma. ADRENAL GLANDS: Unremarkable. KIDNEYS AND URETERS: No evidence of hydronephrosis or renal calculus. The ureters are unremarkable. PELVIS BLADDER: Unremarkable REPRODUCTIVE: Unremarkable. ABDOMEN & PELVIS STOMACH AND BOWEL: There are colonic diverticula present, one of which has adjacent fat stranding lisbet nges. No organizing fluid collection or evidence of pneumoperitoneum. No evidence of bowel obstructio n. PERITONEUM/RETROPERITONEUM: No evidence of pneumoperitoneum or free fluid. VASCULATURE: Mild atherosclerotic calcifications are present throughout the abdominal aorta and its b ranches. No evidence of aortic aneurysm. MUSCULOSKELETAL: No acute osseous abnormalities LYMPH NODES: No gross evidence for lymphadenopathy. SOFT TISSUE/ABDOMINAL WALL: Fat-containing bilateral inguinal hernias. IMPRESSION: 1. Acute uncomplicated sigmoid diverticulitis without evidence of organizing fluid collection or abs cess. 2. Hepatic steatosis.
[2023-02-14 07:31] VITALS: RESP 18
[2023-02-14 09:12] VITALS: BP 140/74; PULSE 76; TEMP 98
== END 2023-02-14 09:12 | disposition home or self-care (01) ==
LOC: EC 03:36
DX: K57.32 Diverticulitis of large intestine without perforation or abscess without bleeding (principal); K76.0 Fatty (change of) liver, not elsewhere classified; I10 Essential (primary) hypertension; G47.30 Sleep apnea, unspecified; Z87.891 Personal history of nicotine dependence; Z79.82 Long term (current) use of aspirin; Z79.899 Other long term (current) drug therapy
CPT/HCPCS: 36415; 80053; 83690; 83735; 85025; 81001; 74177; 99284; Q9967

== ENCOUNTER → 2023-03-05 | Outpatient (CLI) | payer BC ==
--- NOTE | 2023-03-05 14:33 | FL ---
EXAMINATION TYPE: FL barium swallow w video DATE OF EXAM: 03/05/2023 MODIFIED SWALLOW / DEGLUTITION STUDY CLINICAL HISTORY: Dysphagia. TECHNIQUE: Deglutition study is performed utilizing thin liquid barium, honey and nectar thick liqui d barium, barium thick applesauce, and barium coated cracker. COMPARISON: None. FINDINGS: The oral and pharyngeal phases show satisfactory initiation and propagation with all modali ties tested. Normal mastication is seen with solid modalities tested. There is no evidence of penet ration or aspiration with any modality tested. No significant pharyngeal residue was appreciated. IMPRESSION: Normal deglutition study. Please refer to speech therapist notes for further details if necessary.
== END | disposition home or self-care (01) ==
LOC: RADFLMAIN 11:29
PROVIDERS: ATTEND Family Medicine
DX: J31.2 Chronic pharyngitis (principal); J37.0 Chronic laryngitis
CPT/HCPCS: 74230

== ENCOUNTER 2023-04-12 02:50 | Observation (INO) | payer BC ==
[2023-04-12 02:59] VITALS: RESP 18; TEMP 97.9
[2023-04-12 04:23] LABS: Basophils % (A) 0 %; Eosinophils # (A) 0.1 k/uL (0-0.7); Eosinophils % (A) 2 %; HGB 15.7 gm/dL (13.0-17.5); INR 0.9 (<1.2); Lymphocytes # (A) 1.5 k/uL (1.0-4.8); Lymphocytes % (A) 21 %; MCH 30.7 pg (25.0-35.0); MCHC 34.1 g/dL (31.0-37.0); Mean Platelet Volume 7.9; Monocytes # (A) 0.4 k/uL (0-1.0); Monocytes % (A) 5 %; Neutrophils # (A) 4.8 k/uL (1.3-7.7); Neutrophils % (A) 69 %; Partial Thromboplastin Time 26.3 sec (22.0-30.0); Platelet Count 202 k/uL (150-450); Prothrombin Time 9.9 sec (9.0-12.0); RBC 5.11 m/uL (4.30-5.90); RDW 12.4 % (11.5-15.5); WBC 6.9 k/uL (3.8-10.6)
[2023-04-12 04:26] LABS: ALT 40 U/L (4-49); AST 29 U/L (17-59); African American GFR (CKD) >90 (>60 ml/min/1.73 sqM); Albumin 4.5 g/dL (3.5-5.0); Alkaline Phosphatase 72 U/L (38-126); Anion Gap 11 mmol/L; Blood Urea Nitrogen 13 mg/dL (9-20); Calcium 9.2 mg/dL (8.4-10.2); Carbon Dioxide 27 mmol/L (22-30); Chloride 103 mmol/L (98-107); Glucose 140 mg/dL (74-99); Non-African American GFR(CKD) >90 (>60 ml/min/1.73 sqM); Potassium 4.2 mmol/L (3.5-5.1); Sodium 141 mmol/L (137-145); Total Bilirubin 0.7 mg/dL (0.2-1.3); Total Protein 7.2 g/dL (6.3-8.2)
[2023-04-12] MEDS ORDERED: ALPRAZolam 0.5 MG TAB PO STA (04:49)
[2023-04-12] MEDS ORDERED: NALOXONE 0.4 MG/ML 1 ML VIAL IV PRN (07:22)
[2023-04-12] MEDS ORDERED: ASPIRIN 81 MG PO STA (07:24)
--- NOTE | 2023-04-12 07:59 | ED ---
General Adult HPI - General Chief complaint: Arrhythmia/Palpitations Stated complaint: AFib, Chest Discomfort Time Seen by Provider: 04/12/23 04:40 Source: patient, RN notes reviewed, old records reviewed Mode of arrival: ambulatory Limitations: no limitations - History of Present Illness Initial comments: Patient is a 57-year-old male with past medical history remarkable for anxiety, hypertension, tachycardia who previously had a portable monitor on and they did see runs of V. tach that were short. Had extensive workup done outpatient with his technical instructor as well as an EP technical instructor not associated with our hospital. States he had a cardiac cath last week for possible ablation which was negative. Presents tonight stating he is having intermittent focal left-sided chest pain that last for seconds. It is sharp in nature. Also is perseverating on the chest pain as well as the runs of V. tach seen by the portable monitor back in February. He is extremely concerned that she has a shortened life expectancy. He keeps coming back to this point when I discussed it with him. He is uncertain was causing the chest pain. He does endorse that it could be related to anxiety but he is uncertain. He stopped taking all medications because of his anxiety regarding this and was uncertain if it was helping her making his pain worse. States the pain did not start until yesterday evening. This is abnormal. Normally he only feels palpitations. Denies any radiation of the pain. Denies any shortness of breath. Denies any diaphoresis or nausea or vomiting. No other acute complaints at this time. Called his technical instructor last night who told him to go back to sleep. However he instead came to the emergency department for evaluation. - Related Data Home Medications Medication Instructions Recorded Confirmed Aspirin [Adult Low Dose Aspirin EC] 81 mg PO DAILY 02/05/23 02/05/23 Atorvastatin [Lipitor] 40 mg PO HS 02/05/23 02/05/23 dilTIAZem HCL [Cartia Xt] 120 mg PO DAILY 02/05/23 02/05/23 Previous Rx's Medication Instructions Recorded hydrOXYzine pamoate [Vistaril] 25 mg PO QID PRN #90 cap 02/06/23 Amoxic-Pot Clav 875-125Mg 1 tab PO BID 10 Days #20 tab 02/14/23 [Augmentin 875-125] Allergies Allergy/AdvReac Type Severity Reaction Status Date / Time amoxicillin Allergy Unknown Verified 04/12/23 03:00 Childhood diltiazem [From Cardizem] Allergy Unknown Verified 04/12/23 03:00 Review of Systems ROS Statement: Those systems with pertinent positive or pertinent negative responses have been documented in the HPI. Review of Systems: CONST: Denies fever EYES: Denies blurry vision ENT: Denies nasal congestion C/V: Endorses chest pain RESP: Denies shortness of breath GI: Denies abdominal pain : Denies dysuria SKIN: Denies rash. MSK: Denies joint pain. NEURO: Denies headache ROS Other: All systems not noted in ROS Statement are negative. Past Medical History Past Medical History: Hypertension, Sleep Apnea/CPAP/BIPAP Additional Past Medical History / Comment(s): no medications for hypertension, just monitoring History of Any Multi-Drug Resistant Organisms: None Reported Past Surgical History: Heart Catheterization, Tonsillectomy Past Anesthesia/Blood Transfusion Reactions: No Reported Reaction Past Psychological History: Anxiety Smoking Status: Former smoker Past Alcohol Use History: Rare Past Drug Use History: None Reported - Past Family History Father Family Medical History: No Reported History General Exam - General Exam Comments Initial Comments: General: Appears anxious HEAD: Normal with no signs of head trauma. EYES: PERRLA, EOMI, conjunctiva normal, no discharge. ENT: Hearing grossly intact, normal oropharynx. RESPIRATORY: Clear breath sounds bilaterally. No wheezes, rales, or rhonchi. C/V: Regular rate and rhythm. S1 and S2 auscultated, no edema, peripheral pulses 2+ and intact throughout ABD: Abd is soft, nontender, nondistended EXT: Normal range of motion, no obvious deformity SKIN: No rashes or lesions observed on exposed skin. NEURO: Alert and oriented 4. Limitations: no limitations Course Vital Signs 04/12/23 04/12/23 04/12/23 02:54 05:26 07:37 Temperature 97.9 F Pulse Rate 77 64 70 Respiratory 18 18 18 Rate Blood Pressure 177/91 129/81 127/78 O2 Sat by Pulse 97 96 97 Oximetry Medical Decision Making - Medical Decision Making Was pt. sent in by a medical professional or institution (, PA, GEAR REPAIRER, urgent care, hospital, or correction...) When possible be specific @ -No Did you speak to anyone other than the patient for history (EMS, parent, family, police, friend...)? What history was obtained from this source @ -No Did you review nursing and triage notes (agree or disagree)? Why? @ -I reviewed and agree with nursing and triage notes Were old charts reviewed (outside hosp., previous admission, EMS record, old EKG, old radiological studies, urgent care reports/EKG's, correction records)? Report findings @ -I did review the patient's February 2023 portable heart monitor paperwork that he brought with him which did show short runs of V. tach it appears. Differential Diagnosis (chest pain, altered mental status, abdominal pain women, abdominal pain men, vaginal bleeding, weakness, fever, dyspnea, syncope, headache, dizziness, GI bleed, back pain, seizure, CVA, palpatations, mental health, musculoskeletal)? @ -Differential Chest Pain: Stable Angina, Unstable Angina, STEMI, NSTEMI Aortic Dissection, Pneumothorax, Musculoskeletal, Esophageal Spasm GERD, Cholecystitis, Pancreatitis, Zoster, this is not meant to be an all-inclusive list. EKG interpreted by me (3pts min.). @ -As above X-rays interpreted by me (1pt min.). @ -Chest x-ray reveals no obvious acute cardio pulmonary process. CT interpreted by me (1pt min.). @ -None done U/S interpreted by me (1pt. min.). @ -None done What testing was considered but not performed or refused? (CT, X-rays, U/S, labs)? Why? @ -None What meds were considered but not given or refused? Why? @ -None Did you discuss the management of the patient with other professionals (professionals i.e. , PA, GEAR REPAIRER, lab, RT, psych nurse, social and human services assistant, over the road driver, teacher, equal opportunity officer, family independence case manager)? Give summary @ -Discussed with Dr. thompson who accepted the patient. Was smoking cessation discussed for >3mins.? @ -No Was critical care preformed (if so, how long)? @ -No Were there social determinants of health that impacted care today? How? (Homelessness, low income, unemployed, alcoholism, drug addiction, transportation, low edu. Level, literacy, decrease access to med. care, longterm, rehab)? @ -No Was there de-escalation of care discussed even if they declined (Discuss DNR or withdrawal of care, Hospice)? DNR status @ -No What co-morbidities impacted this encounter? (DM, HTN, Smoking, COPD, CAD, Cancer, CVA, ARF, Chemo, Hep., AIDS, mental health diagnosis, sleep apnea, morbid obesity)? @ -None Was patient admitted / discharged? Hospital course, mention meds given and route, prescriptions, significant lab abnormalities, going to OR and other pertinent info. @ -Based on the patient's presentation and physical exam, does appear like he has anxiety but is also complaining of new onset chest pain. Patient does have a history of what appears to be short runs of V. tach seen on portable monitors. Seems to have had had recent extensive workup regarding this. However he has been not taking his medications. Vital signs are currently within acceptable limits. He does appear extremely anxious at this time. We will provide him with a dose of Xanax and obtain cardio Poni labs. He was in agreement with this plan. he was given an aspirin as well. EKG showed no signs of acute ischemia. Labs are remarkable for an undetectable troponin. Chest x-ray revealed no acute cardio, process. On reevaluation, patient's chest pain has resolved at this time. However he is still concerned regarding it. Patient's heart score is borderline moderate at 4. I did discuss and offer him admission for cardiology evaluation concerning he does have documented evidence of these runs of V. tach which would he is most concerned about at this time and would like to speak with the technical instructor. I did state he could follow-up with his own, however he states it is the weekend. Therefore patient will be admitted to observation. I spoke with Dr. Thompson who accepted the patient. Undiagnosed new problem with uncertain prognosis? @ -No Drug Therapy requiring intensive monitoring for toxicity (Heparin, Nitro, Insulin, Cardizem)? @ -No Were any procedures done? @ -No Diagnosis/symptom? @ -Chest pain, anxiety Acute, or Chronic, or Acute on Chronic? @ -Acute Uncomplicated (without systemic symptoms) or Complicated (systemic symptoms)? @ -Complicated Side effects of treatment? @ -No Exacerbation, Progression, or Severe Exacerbation? @ -No Poses a threat to life or bodily function? How? (Chest pain, USA, PR, pneumonia, PE, COPD, DKA, ARF, appy, cholecystitis, CVA, Diverticulitis, Homicidal, Suicidal, threat to staff... and all critical care pts) @ -Potentially - Lab Data Result diagrams: 04/12/23 03:54 04/12/23 03:54 Lab Results 04/12/23 04/12/23 04/12/23 Range/Units 03:54 03:54 03:54 WBC 6.9 (3.8-10.6) k/uL RBC 5.11 (4.30-5.90) m/uL Hgb 15.7 (13.0-17.5) gm/dL Hct 46.0 (39.0-53.0) % MCV 90.0 (80.0-100.0) fL MCH 30.7 (25.0-35.0) pg MCHC 34.1 (31.0-37.0) g/dL RDW 12.4 (11.5-15.5) % Plt Count 202 (150-450) k/uL MPV 7.9 Neutrophils % 69 % Lymphocytes % 21 % Monocytes % 5 % Eosinophils % 2 % Basophils % 0 % Neutrophils # 4.8 (1.3-7.7) k/uL Lymphocytes # 1.5 (1.0-4.8) k/uL Monocytes # 0.4 (0-1.0) k/uL Eosinophils # 0.1 (0-0.7) k/uL Basophils # 0.0 (0-0.2) k/uL PT 9.9 (9.0-12.0) sec INR 0.9 (<1.2) APTT 26.3 (22.0-30.0) sec Sodium 141 (137-145) mmol/L Potassium 4.2 (3.5-5.1) mmol/L Chloride 103 (98-107) mmol/L Carbon Dioxide 27 (22-30) mmol/L Anion Gap 11 mmol/L BUN 13 (9-20) mg/dL Creatinine 0.81 (0.66-1.25) mg/dL Est GFR (CKD-EPI)AfAm >90 (>60 ml/min/1.73 sqM) Est GFR (CKD-EPI)NonAf >90 (>60 ml/min/1.73 sqM) Glucose 140 H (74-99) mg/dL Calcium 9.2 (8.4-10.2) mg/dL Total Bilirubin 0.7 (0.2-1.3) mg/dL AST 29 (17-59) U/L ALT 40 (4-49) U/L Alkaline Phosphatase 72 (38-126) U/L Troponin I (0.000-0.034) ng/mL Total Protein 7.2 (6.3-8.2) g/dL Albumin 4.5 (3.5-5.0) g/dL 04/12/23 Range/Units 03:54 WBC (3.8-10.6) k/uL RBC (4.30-5.90) m/uL Hgb (13.0-17.5) gm/dL Hct (39.0-53.0) % MCV (80.0-100.0) fL MCH (25.0-35.0) pg MCHC (31.0-37.0) g/dL RDW (11.5-15.5) % Plt Count (150-450) k/uL MPV Neutrophils % % Lymphocytes % % Monocytes % % Eosinophils % % Basophils % % Neutrophils # (1.3-7.7) k/uL Lymphocytes # (1.0-4.8) k/uL Monocytes # (0-1.0) k/uL Eosinophils # (0-0.7) k/uL Basophils # (0-0.2) k/uL PT (9.0-12.0) sec INR (<1.2) APTT (22.0-30.0) sec Sodium (137-145) mmol/L Potassium (3.5-5.1) mmol/L Chloride (98-107) mmol/L Carbon Dioxide (22-30) mmol/L Anion Gap mmol/L BUN (9-20) mg/dL Creatinine (0.66-1.25) mg/dL Est GFR (CKD-EPI)AfAm (>60 ml/min/1.73 sqM) Est GFR (CKD-EPI)NonAf (>60 ml/min/1.73 sqM) Glucose (74-99) mg/dL Calcium (8.4-10.2) mg/dL Total Bilirubin (0.2-1.3) mg/dL AST (17-59) U/L ALT (4-49) U/L Alkaline Phosphatase (38-126) U/L Troponin I <0.012 (0.000-0.034) ng/mL Total Protein (6.3-8.2) g/dL Albumin (3.5-5.0) g/dL - EKG Data -: EKG Interpreted by Me EKG Comments: 12-lead Electrocardiogram Interpretation Note EKG was reviewed and interpreted by myself. 12-lead ECG performed at 0302 is interpreted by me as revealing normal sinus rhythm at a rate of 69 beats per minute. [place] is normal. AR interval is 140 ms, QRS duration is 92 ms, QTc is 418 ms.. There were no obvious ST or T wave abnormalities to suggest myocardial ischemia or injury. R wave progression across the precordium was satisfactory. By my interpretation this EKG is non-diagnostic for acute ischemia. Disposition Clinical Impression: Chest pain, Anxiety Disposition: ADMITTED IP TO THIS HOSP Condition: Stable Referrals: Nba Steve DO [Primary Care Provider] - 1-2 days Time of Disposition: 06:55
[2023-04-12] MEDS ORDERED: HEPARIN SODIUM,PORCINE/PF 5,000 UNIT/0.5 ML SYRINGE SQ SCH (08:00)
--- NOTE | 2023-04-12 08:19 | XR ---
EXAMINATION TYPE: XR chest 2V DATE OF EXAM: 04/12/2023 COMPARISON: 03/02/2023 HISTORY: 57-year-old male with chest pain TECHNIQUE: PA and lateral views FINDINGS: Heart normal size. Aorta and pulmonary vasculature within normal limits. Some stringy atelectasis at the right midlung without consolidation or pleural effusion. IMPRESSION: Some strandy right midlung atelectasis. Otherwise, no acute process seen.
--- NOTE | 2023-04-12 11:43 | P.CRDCN ---
History of Present Illness History of present illness: HISTORY OF PRESENTING ILLNESS This is a pleasant 57-year-old with past medical history significant for heard, obesity, low testosterone, nonsustained wide complex tachycardia questionable SVT with aberrancy versus VT and normal heart catheterization from 2010. He follows in the office with Dr Lilly and has been seeing Dr Bess with EP. He has gone through extensive workup secondary to atypical symptoms with prior echo and nuclear stress test unrevealing. He eventually was found to have what appears to be fairly asymptomatic wide-complex tachycardia which was nonsustained and therefore saw Dr. Bess . He additionally was placed on number of medications including aspirin, Lipitor and Cardizem. He states he had upset stomach with all these medications and initially these were discontinued. He eventually had EP study which showed no reason for his tachycardia and was recommended to come off of medications. He did however call his primary harpoon engagement planning operator who told him to take the medications and therefore has been anxious regarding what to do. Patient states he had an episode last night where he is watching his heart rates on his monitor and started feeling chest pain and his heart rate going up. This appears more related to anxiety and currently feels back to normal. He has been very anxious regarding what to do with his medications. He admits off of the medications he does not have as much heartburn issues. Telemetry is reviewed with sinus rhythm. EGD shows sinus rhythm, normal axis, no significant ST or T wave abnormalities. Troponin normal 1. [facility] 2011 was normal. REVIEW OF SYSTEMS At the time of my exam: CONSTITUTIONAL: Denies fever or chills. CARDIOVASCULAR: +chest pain, + mild chronic shortness of breath, no orthopnea, PND or palpitations. RESPIRATORY: Denies cough. GASTROINTESTINAL: Denies abdominal pain, diarrhea, constipation, nausea or vo miting. MUSCULOSKELETAL: Denies myalgias. NEUROLOGIC: Denies numbness, tingling or weakness. ENDOCRINE: Denies fatigue, weight change, polydipsia or polyurina. GENITOURINARY: Denies burning, hematuria or urgency with micturation. HEMATOLOGIC: Denies history of anemia or bleeding. PHYSICAL EXAMINATION Vital signs reviewed. CONSTITUTIONAL: No apparent distress. HEENT: Head is normocephalic. Pupils are equal, round. Sclerae anicteric. Mucous membranes of the mouth are moist. No JVD. No carotid bruit. CHEST EXAMINATION: Lungs are clear to auscultation. No chest wall tenderness is noted on palpation or with deep breathing. HEART EXAMINATION: Regular rate and rhythm. S1, S2 heard. No murmurs, gallops or rub. ABDOMEN: Soft, nontender. Positive bowel sounds. EXTREMITIES: 2+ peripheral pulses, no lower extremity edema and no calf tenderness. NEUROLOGIC EXAMINATION: Patient is awake, alert and oriented x3. ASSESSMENT 1. Episode of chest pain with increased heart rates on apple watch, appears more likely related to panic attack 2. History of nonsustained wide complex tachycardia, recent EP study one week ago negative 3. Intolerance to medications with GI upset 4. Normal coronary arteries by heart catheterization 2010 5. Anxiety PLAN Patient with extensive workup in the past. Patient mainly presenting secondary to lifting his watch and see in his heart rate increasing and then having some atypical chest pain. More likely symptoms related to anxiety. No significant arrhythmias noted. Recent EP study unrevealing. Extensive workup in the past. Discussed at length with patient regarding previous workup and at this point given EP doctor recommended coming off of Cardizem would continue off of any medications at this time. Follow-up with primary harpoon engagement planning operator. Okay for discharge. Past Medical History Past Medical History: Hypertension, Sleep Apnea/CPAP/BIPAP Additional Past Medical History / Comment(s): no medications for hypertension, just monitoring History of Any Multi-Drug Resistant Organisms: None Reported Past Surgical History: Heart Catheterization, Tonsillectomy Past Anesthesia/Blood Transfusion Reactions: No Reported Reaction Past Psychological History: Anxiety Smoking Status: Former smoker Past Alcohol Use History: Rare Past Drug Use History: None Reported - Past Family History Father Family Medical History: No Reported History Medications and Allergies Home Medications Medication Instructions Recorded Confirmed Type Psyllium Husk (with Sugar) 2 tsp PO DAILY 04/12/23 04/12/23 History [Metamucil Powder] Allergies Allergy/AdvReac Type Severity Reaction Status Date / Time amoxicillin Allergy Unknown Verified 04/12/23 11:23 Childhood diltiazem [From Cardizem] Allergy Unknown Verified 04/12/23 11:23 Physical Exam Vitals: Vital Signs Temp Pulse Resp BP Pulse Ox 04/12/23 10:16 67 18 127/78 98 04/12/23 07:37 70 18 127/78 97 04/12/23 05:26 64 18 129/81 96 04/12/23 02:54 97.9 F 77 18 177/91 97 Intake and Output 04/11/23 04/12/23 04/12/23 22:59 06:59 14:59 Other: Weight 102.058 kg Results 04/12/23 03:54 04/12/23 03:54 Cardiac Enzymes 04/12/23 04/12/23 Range/Units 03:54 03:54 AST 29 (17-59) U/L Troponin I <0.012 (0.000-0.034) ng/mL Coagulation 04/12/23 Range/Units 03:54 PT 9.9 (9.0-12.0) sec APTT 26.3 (22.0-30.0) sec CBC 04/12/23 Range/Units 03:54 WBC 6.9 (3.8-10.6) k/uL RBC 5.11 (4.30-5.90) m/uL Hgb 15.7 (13.0-17.5) gm/dL Hct 46.0 (39.0-53.0) % Plt Count 202 (150-450) k/uL Comprehensive Metabolic Panel 04/12/23 Range/Units 03:54 Sodium 141 (137-145) mmol/L Potassium 4.2 (3.5-5.1) mmol/L Chloride 103 (98-107) mmol/L Carbon Dioxide 27 (22-30) mmol/L BUN 13 (9-20) mg/dL Creatinine 0.81 (0.66-1.25) mg/dL Glucose 140 H (74-99) mg/dL Calcium 9.2 (8.4-10.2) mg/dL AST 29 (17-59) U/L ALT 40 (4-49) U/L Alkaline Phosphatase 72 (38-126) U/L Total Protein 7.2 (6.3-8.2) g/dL Albumin 4.5 (3.5-5.0) g/dL Current Medications Generic Name Dose Route Start Last Admin Trade Name Freq PRN Reason Stop Dose Admin Heparin Sodium (Porcine) 5,000 unit 04/12/23 08:00 04/12/23 07:39 Heparin Sodium,Porcine/Pf 5,000 Unit/0.5 Ml Syringe SQ Not Given Q8HR MAURI Naloxone HCl 0.2 mg 04/12/23 07:22 Naloxone 0.4 Mg/Ml 1 Ml Vial IV Q2M PRN Opioid Reversal Intake and Output 04/11/23 04/12/23 04/12/23 22:59 06:59 14:59 Other: Weight 102.058 kg 04/12/23 03:54 04/12/23 03:54
--- NOTE | 2023-04-12 11:50 | P.HPIM ---
History of Present Illness H&P Date: 04/12/23 Patient is a 57-year-old male with history of nonsustained VT presenting with chest pain. He claims that he was in his usual state of health about 3 months ago. At that time, he started taking testosterone shots, and soon after he started to have anxiety attacks. He was admitted to the hospital, and was noted to have nonsustained VT. During that time, based on his cardiac workup, he was prescribed aspirin, statin, and Cardizem. She was having a lot of GI issues with these medications. Recently, last week he met with EP and had a study to induce VT, which was negative. He was recommended to stop taking Cardizem. However, his general station mechanic apprentice was recommending to take the medication. Yesterday night he had significant chest discomfort, unsure if it is related to anxiety. Noted that his heart rate was really elevated. He then decided to present to the emergency. Currently he is not complaining of any significant chest discomfort. He still has multiple questions with regards to his medications. He denies any recent fevers, chills, nausea, vomiting, diarrhea, constipation, or urinary complaints. In the ED, initial blood pressure was 177/91, came down to 129/81, pulse 77, respiratory rate 18, saturating at 97% on room air, temperature 97.9. CBC and C MP unremarkable, troponin negative. EKG shows normal sinus rhythm. Chest x-ray shows no acute process. Patient admitted for further cardiac workup. Pertinent positives and negatives as discussed in HPI, a complete review of systems was performed and all other systems are negative. Patient seen and examined at bedside. Vital signs reviewed General: nontoxic, no distress, appears at stated age Derm: warm, dry Head: atraumatic, normocephalic, symmetric Eyes: EOMI, no lid lag, anicteric sclera, pupils equal round reactive to light ENT: Nose and ears atraumatic Neck: No thyromegaly, supple Mouth: no lip lesion, mucus membranes moist Cardiovascular: S1S2 reg, no murmur, no edema Lungs: clear to auscultation bilateral, no rhonchi, no rales, no wheeze, no accessory muscle use Abdominal: soft, nontender to palpation, no guarding, no appreciable organomegaly Ext: no gross muscle atrophy, muscle strength muscle strength 5 out of 5 in all 4 extremities, no contractures Neuro: CN II-XII grossly intact Psych: Alert, oriented, appropriate affect Assessment/Plan: Active: Chest pain, rule out ACS History of nonsustained VT GERD Anxiety Sleep apnea -Cardiology note reviewed, recommending outpatient follow-up, discontinue Cardizem, follow-up with primary station mechanic apprentice -Cardiac workup inpatient has been negative -EKG personally interpreted, shows normal sinus rhythm -Chest x-ray personally interpreted shows no acute process -We'll start on pantoprazole 40 daily -needs outpatient f/u with PCP for anxiety -Continue CPAP at night The patient is admitted with an anticipated less than 2 midnight stay as observation status for evaluation of chest pain. Anticipated discharge date: Today Anticipated discharge place: Home A total of 65 minutes was spent on the care of this complex patient more than 50% of the time was spent in counseling and care coordination. Past Medical History Past Medical History: Hypertension, Sleep Apnea/CPAP/BIPAP Additional Past Medical History / Comment(s): no medications for hypertension, just monitoring History of Any Multi-Drug Resistant Organisms: None Reported Past Surgical History: Heart Catheterization, Tonsillectomy Past Anesthesia/Blood Transfusion Reactions: No Reported Reaction Past Psychological History: Anxiety Smoking Status: Former smoker Past Alcohol Use History: Rare Past Drug Use History: None Reported - Past Family History Father Family Medical History: No Reported History Medications and Allergies Home Medications Medication Instructions Recorded Confirmed Type Psyllium Husk (with Sugar) 2 tsp PO DAILY 04/12/23 04/12/23 History [Metamucil Powder] Allergies Allergy/AdvReac Type Severity Reaction Status Date / Time amoxicillin Allergy Unknown Verified 04/12/23 11:23 Childhood diltiazem [From Cardizem] Allergy Unknown Verified 04/12/23 11:23 Physical Exam Vitals: Vital Signs Temp Pulse Resp BP Pulse Ox 04/12/23 10:16 67 18 127/78 98 04/12/23 07:37 70 18 127/78 97 04/12/23 05:26 64 18 129/81 96 04/12/23 02:54 97.9 F 77 18 177/91 97 Intake and Output 04/11/23 04/12/23 04/12/23 22:59 06:59 14:59 Other: Weight 102.058 kg Results CBC & Chem 7: 04/12/23 03:54 04/12/23 03:54 Labs: Abnormal Lab Results - Last 24 Hours (Table) 04/12/23 Range/Units 03:54 Glucose 140 H (74-99) mg/dL
--- NOTE | 2023-04-12 11:54 | P.DS ---
Providers Date of admission: 04/12/23 07:22 Expected date of discharge: 04/12/23 Attending physician: Ramon Gama MD Consults: 04/12/23 07:22 Consult Physician Routine Consulting Provider: [facility] Consult Reason/Comments: chest pain Do you want consulting provider notified?: Yes Primary care physician: Nba Steve [facility] Course: Discharge Diagnosis: Chest pain History of nonsustained VT GERD Anxiety Sleep apnea Hospital Course: 57-year-old male with history of nonsustained VT presenting with chest pain. In the ED, initial blood pressure was 177/91, came down to 129/81, pulse 77, respiratory rate 18, saturating at 97% on room air, temperature 97.9. CBC and CMP unremarkable, troponin negative. EKG shows normal sinus rhythm. Chest x- ray shows no acute process. Cardiology consulted, recommended outpatient follow-up. Discontinued Cardizem. F/U with PCP for anxiety. Patient seen and examined at bedside. Vital signs reviewed and stable. General: nontoxic, no distress, appears at stated age Derm: warm, dry Head: atraumatic, normocephalic, symmetric Eyes: EOMI, no lid lag, anicteric sclera Mouth: no lip lesion, mucus membranes moist Cardiovascular: S1S2 reg, no murmur Lungs: CTA bilateral, no rhonchi, no rales , no accessory muscle use Abdominal: soft, nontender to palpation, no guarding, no appreciable organomegaly Ext: no gross muscle atrophy, no edema, no contractures Neuro: CN II-XI grossly intact, no focal neuro deficits Psych: Alert, oriented, appropriate affect A total of 33 minutes of time were spent preparing this complex discharge summary. Patient was discharged on 04/12/23 at 11:52. Patient Condition at Discharge: Stable Plan - Discharge Summary New Discharge Prescriptions: New Pantoprazole [Protonix] 40 mg PO AC-BRKFST #30 tab Continue Psyllium Husk (with Sugar) [Metamucil Powder] 2 tsp PO DAILY Discharge Medication List Pantoprazole [Protonix] 40 mg PO AC-BRKFST #30 tab 04/12/23 [Rx] Psyllium Husk (with Sugar) [Metamucil Powder] 2 tsp PO DAILY 04/12/23 [History] Follow up Appointment(s)/Referral(s): Nba Steve DO [Primary Care Provider] - 1-2 days Patient Instructions/Handouts: Noncardiac Chest Pain (DC), Anxiety (GEN) Activity/Diet/Wound Care/Special Instructions: Please see her primary transportation museum helper, avoid taking Cardizem at the moment. Also follow-up with PCP for anxiety. Discharge Disposition: HOME SELF-CARE
[2023-04-12 12:45] VITALS: BP 120/80; PULSE 72
[2023-04-13] MEDS ORDERED: PANTOPRAZOLE 40 MG TABLET PO SCH (07:30)
== END 2023-04-12 12:57 | disposition home or self-care (01) ==
LOC: EC 02:50 → 6NMEDSUR 07:22
PROVIDERS: ADMIT Student in an Organized Health Care Education/Training Program; ATTEND Student in an Organized Health Care Education/Training Program
DX: R07.9 Chest pain, unspecified (principal); R00.0 Tachycardia, unspecified; I48.91 Unspecified atrial fibrillation; F41.9 Anxiety disorder, unspecified; I10 Essential (primary) hypertension; G47.30 Sleep apnea, unspecified; K21.9 Gastro-esophageal reflux disease without esophagitis; E66.9 Obesity, unspecified; Z87.891 Personal history of nicotine dependence; Z79.82 Long term (current) use of aspirin; Z79.899 Other long term (current) drug therapy; Z88.0 Allergy status to penicillin
CPT/HCPCS: 99285; 36415; 93005; 80053; 84484; 85025; 85610; 85730; 71046; G0378

== ENCOUNTER → 2023-09-23 | Day surgery (SDC) | payer BC ==
[~2023-09-23] MED LIST: LACTATED RINGERS 1,000 ML IV SCH; LIDOCAINE 1% INJ 10MG/ML (20 ML MDV) ONE; PROPOFOL 10 MG/ML 20 ML VIAL IV ONE
[2023-09-23 09:23] VITALS: TEMP 97.9
--- NOTE | 2023-09-23 09:47 | P.GSHP ---
History of Present Illness H&P Date: 09/23/23 Chief Complaint: GERD, screening Patient here today for upper and lower endoscopy. Had an EGD 3 months ago and was found to have distal esophagitis. It recent appendectomy and his colonoscopy was held at the time for that reason. Patient with history of colon polyps. Past Medical History Past Medical History: GERD/Reflux, Hypertension, Sleep Apnea/CPAP/BIPAP Additional Past Medical History / Comment(s): no medications for hypertension, just monitoring. CPAP IN USE. History of Any Multi-Drug Resistant Organisms: None Reported Past Surgical History: Heart Catheterization, Tonsillectomy Past Anesthesia/Blood Transfusion Reactions: No Reported Reaction Past Psychological History: Anxiety Smoking Status: Former smoker Past Alcohol Use History: Rare Past Drug Use History: None Reported - Past Family History Father Family Medical History: No Reported History Medications and Allergies Home Medications Medication Instructions Recorded Confirmed Type Psyllium Husk (with Sugar) 2 tsp PO DAILY 04/12/23 04/12/23 History [Metamucil Powder] Esomeprazole Magnesium [NexIUM] 40 mg PO HS 09/18/23 09/23/23 History Allergies Allergy/AdvReac Type Severity Reaction Status Date / Time amoxicillin Allergy Unknown Verified 09/23/23 08:56 Childhood diltiazem [From Cardizem] Allergy Unknown Verified 09/23/23 08:56 Surgical - Exam Vital Signs Temp Pulse Resp BP Pulse Ox 97.9 F 67 18 148/81 98 09/23/23 09:03 09/23/23 09:03 09/23/23 09:03 09/23/23 09:03 09/23/23 09:03 Physical exam: General: Well-developed, well-nourished HEENT: Normocephalic, sclerae nonicteric Abdomen: Nontender, nondistended Extremities: No edema Neuro: Alert and oriented Assessment and Plan (1) Colon cancer screening Narrative/Plan: Will proceed with EGD and colonoscopy Current Visit: Yes Status: Acute Code(s): Z12.11 - ENCOUNTER FOR SCREENING FOR MALIGNANT NEOPLASM OF COLON SNOMED Code(s): 666766365
--- NOTE | 2023-09-23 10:02 | P.PCN ---
Date of Procedure: 09/23/23 Procedure(s) Performed: IPREOPERATIVE DIAGNOSIS: GERD, screening POSTOPERATIVE DIAGNOSIS: Mild gastritis, normal colon PROCEDURE: 1. EGD with biopsy 2. Colonoscopy ANESTHESIA: MAC SURGEON: Juan A Bland M.D. SPECIMENS: Antrum ENDOSCOPIC PROCEDURE: The patient was on the endoscopy table in the left decu bitus position. The Olympus gastroscope was inserted into the oropharynx and passed under direct visualization to the region of the third portion of the duodenum. From that point the scope was slowly withdrawn inspecting all surfaces carefully. There were no neoplastic inflammatory or polypoid lesions throughout the duodenum. The pylorus was widely patent. The stomach was carefully inspected. There was mild gastritis present. A biopsy of the antrum took place to rule out H. pylori. Retroflexion revealed a normal hiatus. The esophagus was then carefully examined. There were no neoplastic inflammatory or polypoid lesions throughout the visualized esophagus. The patient was kept on the endoscopy table in the left decubitus position. The Olympus colonoscope was inserted into the anus and passed under direct visualization to the base of the cecum. The appendiceal orifice was visualized. From that point the scope was slowly withdrawn inspecting all surfaces carefully. There were no neoplastic inflammatory or polypoid lesions throughout the cecum, ascending, transverse, descending, sigmoid and rectum. There was no visible diverticulosis noted. Digital rectal examination was normal. The patient was taken to the recovery room in stable condition per anesthesia guidelines. RECOMMENDATIONS: Await biopsy results. Continue antiacids. Repeat colonoscopy 10 years.
[2023-09-23 10:25] VITALS: BP 134/72; PULSE 74; RESP 19
== END ==
LOC: ORWHC2ENDO 08:23
PROVIDERS: ATTEND Surgery
DX: Z12.11 Encounter for screening for malignant neoplasm of colon (principal); K29.50 Unspecified chronic gastritis without bleeding; K21.9 Gastro-esophageal reflux disease without esophagitis; G47.30 Sleep apnea, unspecified; Z90.89 Acquired absence of other organs; Z87.891 Personal history of nicotine dependence; F10.90 Alcohol use, unspecified, uncomplicated; Z88.0 Allergy status to penicillin; Z79.899 Other long term (current) drug therapy; Z86.010 Personal history of colon polyps
CPT/HCPCS: 45378; 88305; 43239; J2001; J2704